=== PATIENT | male | born 2005 | race Hispanic/Latino ===

== ENCOUNTER 2024-06-14 11:23 | Emergency (ER) | payer OTHER ==
[~2024-06-14] VITALS: Ht 170.2 cm; Wt 72.6 kg
[2024-06-14] MEDS ORDERED: PRED5TAB PO (11:41)
[2024-06-14] MEDS ORDERED: LORA10TA7 PO (11:41)
[2024-06-14 12:03] VITALS: BP 124/78; PULSE 76; RESP 18; O2SAT 98
== END 2024-06-14 12:05 | disposition home or self-care (01) ==
LOC: EDH 11:23
DX: L25.9 Unspecified contact dermatitis, unspecified cause (principal); R60.9 Edema, unspecified
CPT/HCPCS: 99282